=== PATIENT | female | born 1980 | race Two or more races ===

== ENCOUNTER → 2017-12-11 | Day surgery (SDC) | payer OTHER ==
[~2017-12-11] MED LIST: ALDOMET250 MG; PRENATAL 19 TA1 EAC1
== END | disposition home or self-care (01) ==
LOC: CIR.AMB 05:55
DX: O34.32 Maternal care for cervical incompetence, second trimester (principal); Z3A.15 15 weeks gestation of pregnancy

== ENCOUNTER 2017-12-26 06:53 | Emergency (ER) | payer OTHER ==
[~2017-12-26] VITALS: Ht 157.5 cm; Wt 54.4 kg
[2017-12-26] MEDS ORDERED: ALDOMET250 MG (07:04)
== END 2017-12-26 10:13 | disposition home or self-care (01) ==
LOC: ER 06:53
DX: K52.89 Other specified noninfective gastroenteritis and colitis (principal)

== ENCOUNTER 2018-04-19 15:38 | Inpatient (IN) | payer OTHER ==
[~2018-04-19] VITALS: Ht 157.5 cm; Wt 2.7 kg
[2018-04-19] MEDS ORDERED: PRENATAL 19 TA1 EACH PO (17:30)
== END 2018-04-27 19:34 | disposition home or self-care (01) | DRG 765 ==
LOC: LDR 15:38 → OB/GYN 15:38
PROVIDERS: Obstetrics & Gynecology
PROC: 4A1HXCZ Monitoring of Products of Conception, Cardiac Rate, External Approach (ICD-10-PCS; 2018-04-19)
PROC: BY4FZZZ Ultrasonography of Third Trimester, Single Fetus (ICD-10-PCS; 2018-04-19)
PROC: 4A033R1 Measurement of Arterial Saturation, Peripheral, Percutaneous Approach (ICD-10-PCS; 2018-04-20)
PROC: BY4FZZZ Ultrasonography of Third Trimester, Single Fetus (ICD-10-PCS; 2018-04-23)
PROC: 10D00Z1 Extraction of Products of Conception, Low, Open Approach (ICD-10-PCS; principal; 2018-04-24 16:15)
DX: O11.3 Pre-existing hypertension with pre-eclampsia, third trimester (principal); O60.14X0 Preterm labor third trimester with preterm delivery third trimester, not applicable or unspecified; O34.33 Maternal care for cervical incompetence, third trimester; O41.1230 Chorioamnionitis, third trimester, not applicable or unspecified; O10.013 Pre-existing essential hypertension complicating pregnancy, third trimester; O34.211 Maternal care for low transverse scar from previous cesarean delivery; O75.82 Onset (spontaneous) of labor after 37 completed weeks of gestation but before 39 completed weeks gestation, with delivery by (planned) cesarean section; Z3A.33 33 weeks gestation of pregnancy; Z37.0 Single live birth; Z22.330 Carrier of Group B streptococcus